=== PATIENT | female | born 1995 | race Two or more races ===

== ENCOUNTER 2022-05-13 18:12 | Emergency (ER) | payer MEDICARE, MEDICAID ==
[~2022-05-13] VITALS: Ht 157.5 cm; Wt 58.0 kg
[2022-05-13] MEDS ORDERED: CEPH-510 PO (22:11)
[2022-05-13] MEDS ORDERED: ONDANSETRON ODT 4 MG TAB PO ONE (22:30)
[2022-05-14 00:01] VITALS: BP 110/74
== END 2022-05-14 04:35 | disposition home or self-care (01) ==
LOC: ER 18:15
DX: S01.01XA Laceration without foreign body of scalp, initial encounter (principal); X58.XXXA Exposure to other specified factors, initial encounter; Y93.89 Activity, other specified; Y92.89 Other specified places as the place of occurrence of the external cause; Y99.8 Other external cause status; F32.9 Major depressive disorder, single episode, unspecified; Z98.890 Other specified postprocedural states
CPT/HCPCS: 12002; 70450; 99283; Q0162

== ENCOUNTER 2024-05-07 17:51 | Emergency (ER) | payer OTHER, MEDICAID ==
[~2024-05-07] VITALS: Ht 162.6 cm; Wt 59.8 kg
[~2024-05-07 17:51] MED LIST: CEPH-510 PO
--- NOTE | 2024-05-07 18:42 | DVH ---
CLINICAL INDICATION: injury/swelling TECHNIQUE: 3 radiographic views of the right wrist were obtained. Comparison: None FINDINGS/IMPRESSION: There is mildly displaced fracture of the ulnar styloid of unknown chronicity. Recommend correlation with point tenderness. No dislocation. The visualized joint space is well maintained. The alignment is anatomical. There is no radiopaque foreign body. There is soft tissue edema of the medial distal forearm and hand.
[2024-05-07 18:43] VITALS: BP 112/76; PULSE 72; RESP 18; TEMP 97.7; O2SAT 98
--- NOTE | 2024-05-07 18:48 | ED.PDOC ---
Back pain HPI HPI Comments BIB STAFF FROM [facility]. PT STATES SHE WAS UPSET AND BANGED RIGH ARM ON COUNTER. RIGHT WRIST EDEMATOUS AND BRUISED. DENEIS SI/HI/AH/VH AT THIS TIME. 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 PROSPECTING SURVEYOR History Family History Family History: Unknown Social History Smoker: Non-Smoker Alcohol: Denies ETOH Use Drugs: Denies Drug Use Lives In: Home Constitutional: denies: chills, diaphoresis, fatigue, fever, malaise, sweats, weakness, others EENTM: denies: blurred vision, double vision, ear bleeding, ear discharge, ear drainage, ear pain, ear ringing, eye pain, eye redness, hearing loss, mouth pain, mouth swelling, nasal discharge, nose bleeding, nose congestion, nose pain, photophobia, tearing, throat pain, throat swelling, voice changes, others Respiratory: denies: cough, hemoptysis, orthopnea, SOB at rest, shortness of breath, SOB with excertion, stridor, wheezing, others Cardiovascular: denies: chest pain, dizzy spells, diaphoresis, Dyspnea on exertion, edema, irregular heart beat, left arm pain, lightheadedness, palpitations, PND, syncope, others Gastrointestinal: denies: abdomen distended, abdominal pain, blood streaked bowels, constipated, diarrhea, dysphagia, difficulty swallowing, hematemesis, melena, nausea, poor appetite, poor fluid intake, rectal bleeding, rectal pain, vomiting, others Genitourinary: denies: abnormal vagina bleeding, burning, dyspareunia, dysuria, flank pain, frequency, hematuria, incontinence, pain, , vagina discharge, urgency, others Neurological: denies: dizziness, fainting, headache, left sided numbness, left sided weakness, numbness, paresthesia, pre-existing deficit, right sided numbness, right sided weakness, seizure, speech problems, tingling, tremors, weakness, others Musculoskeletal: reports: others (RIGHT WRIST PAIN AND INJURY ); denies: back pain, gout, joint pain, joint swelling, muscle pain, muscle stiffness, neck pain Integumetry: denies: bruises, change in color, change in hair/nails, dryness, laceration, lesions, lumps, rash, wounds, others Allergic/Immunocompromised: denies: Difficulty Healing, Frequent Infections, Hives, Itching, others Hematologic/Lymphatic: denies: anemia, blood clots, easy bleeding, easy bruising, swollen glands, others Endocrine: denies: excessive hunger, excessive sweating, excessive thirst, excessive urination, flushing, intolerance to cold, intolerance to heat, unexplained weight gain, unexplained weight loss, others Psychiatric: denies: anxiety, bipolar disorder, depression, hopeless, panic disorder, schizophrenia, sleepless, suicidal, others Physical Exam General Appearance: No Apparent Distress, Normal HEENT: Pharynx Normal Neck: Full Range of Motion, Non-Tender Respiratory: Lungs Clear, No Respiratory Distress, Normal Breath Sounds Cardiovascular: No Murmur, Normal Peripheral Pulses, Regular Rate/Rhythm Breast Exam: Deferred Gastrointestinal: Non Tender, Soft Genitalia: Deferred Pelvic: Deferred Rectal: Deferred Extremities: Normal capillary refill, Normal inspection, Normal range of motion, Non-tender, No pedal edema Musculoskeletal : Location: Right Extremity Location: Wrist (MODERATE TENDERNESS PALPATED OVER RIGHT LATERAL ANTERIOR WRIST WITH MODERATE EDEMA. 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 Was a procedure done?: No Back Pain Differential Dx Differential Diagnosis: Fracture, Musculoskeletal Pain X-Ray, Labs, Meds, VS Vital Signs Date Time Temp Pulse Resp B/P (MAP) Pulse Ox O2 Delivery O2 Flow Rate FiO2 05/07/24 18:43 97.7 72 18 112/76 (88) 98 97.7 05/07/24 18:43 72 18 98 Room Air 05/07/24 18:09 97.7 72 18 112/76 88 98 X-Ray, Labs, Meds, VS Comment FINDINGS/IMPRESSION: There is mildly displaced fracture of the ulnar styloid of unknown chronicity. Recommend correlation with point tenderness. No dislocation. The visualized joint space is well maintained. The alignment is anatomical. There is no radiopaque foreign body. There is soft tissue edema of the medial distal forearm and hand. Ice pack Applied patient placed in splint. Advised to follow up with PCP in 2-3 days for referral to ortho do not remove splint into re-evaluated advised on rice. [id number] Tylenol or Motrin as needed for pain. ER return precautions given patient indicates understanding and agrees with discharge plan of care. Time of 1ST Reevaluation: 19:33 Reevaluation 1ST: Improved Patient Education/Counseling: Diagnosis, Treatment, Prognosis, Need For Follow Up Family Education/Counseling: Diagnosis, Treatment, Prognosis, Need For Follow Up Departure 1 Departure Time of Disposition: 19:33 Impression: Primary Impression: Fracture of right ulnar styloid Qualified Codes: S52.614A - Nondisplaced fracture of right ulna styloid process, initial encounter for closed fracture Disposition: 01 HOME / SELF CARE / HOMELESS Condition: Stable Discharged With: Brim Plater Critical Care Note Critical Care Time?: No Stability Stability form required: JODI Royal May 07, 2024 18:47
[2024-05-08] MEDS ORDERED: KETO10TA PO (19:57)
== END 2024-05-07 20:14 | disposition home or self-care (01) ==
LOC: ER 17:55
DX: S52.611A Displaced fracture of right ulna styloid process, initial encounter for closed fracture (principal); W22.09XA Striking against other stationary object, initial encounter; Y93.89 Activity, other specified; Y92.89 Other specified places as the place of occurrence of the external cause; Y99.8 Other external cause status; F32.A Depression, unspecified; R56.9 Unspecified convulsions; Z98.890 Other specified postprocedural states
CPT/HCPCS: 29125; 73110

== ENCOUNTER 2024-05-08 18:24 | Emergency (ER) | payer OTHER, MEDICAID ==
[~2024-05-08] VITALS: Ht 154.9 cm; Wt 61.7 kg
--- NOTE | 2024-05-08 18:52 | ED.PDOC ---
Back pain HPI HPI Comments THIS IS A 29-YEAR-OLD MALE FEMALE PRESENTS TO THE ED CHIEF COMPLAINT STATUS POST INJURY TO HER ULNAR. STATES SEEN HERE YESTERDAY AND HAS ULNAR FX RT STATES SPLINT IS "TOO HEVY AND IM HAVING ALOT OF PAIN" CAP REFILL < 3 SEC +PULSES. HE HAS NUMBNESS, WEAKNESS OR NEW INJURY. Chief Complaint: Upper Extremity Time Seen by MD: 18:29 Primary Care Provider: ? 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 History Family History Family History: Unknown Social History Smoker: Non-Smoker Alcohol: Denies ETOH Use Drugs: Denies Drug Use Lives In: Home Constitutional: denies: chills, diaphoresis, fatigue, fever, malaise, sweats, weakness, others EENTM: denies: blurred vision, double vision, ear bleeding, ear discharge, ear drainage, ear pain, ear ringing, eye pain, eye redness, hearing loss, mouth pain, mouth swelling, nasal discharge, nose bleeding, nose congestion, nose pain, photophobia, tearing, throat pain, throat swelling, voice changes, others Respiratory: denies: cough, hemoptysis, orthopnea, SOB at rest, shortness of breath, SOB with excertion, stridor, wheezing, others Cardiovascular: denies: chest pain, dizzy spells, diaphoresis, Dyspnea on exertion, edema, irregular heart beat, left arm pain, lightheadedness, palpitations, PND, syncope, others Gastrointestinal: denies: abdomen distended, abdominal pain, blood streaked bowels, constipated, diarrhea, dysphagia, difficulty swallowing, hematemesis, melena, nausea, poor appetite, poor fluid intake, rectal bleeding, rectal pain, vomiting, others Genitourinary: denies: abnormal vagina bleeding, burning, dyspareunia, dysuria, flank pain, frequency, hematuria, incontinence, pain, , vagina discharge, urgency, others Neurological: denies: dizziness, fainting, headache, left sided numbness, left sided weakness, numbness, paresthesia, pre-existing deficit, right sided numbness, right sided weakness, seizure, speech problems, tingling, tremors, weakness, others Musculoskeletal: denies: back pain, gout, joint pain, joint swelling, muscle pain, muscle stiffness, neck pain, others Integumetry: reports: bruises; denies: change in color, change in hair/nails, dryness, laceration, lesions, lumps, rash, wounds, others Allergic/Immunocompromised: denies: Difficulty Healing, Frequent Infections, Hives, Itching, others Hematologic/Lymphatic: denies: anemia, blood clots, easy bleeding, easy bruising, swollen glands, others Endocrine: denies: excessive hunger, excessive sweating, excessive thirst, excessive urination, flushing, intolerance to cold, intolerance to heat, unexplained weight gain, unexplained weight loss, others Psychiatric: denies: anxiety, bipolar disorder, depression, hopeless, panic disorder, schizophrenia, sleepless, suicidal, others Physical Exam General Appearance: No Apparent Distress, Normal HEENT: Pharynx Normal Neck: Full Range of Motion, Non-Tender Respiratory: Lungs Clear, No Respiratory Distress, Normal Breath Sounds Cardiovascular: No Murmur, Normal Peripheral Pulses, Regular Rate/Rhythm Breast Exam: Deferred Gastrointestinal: Non Tender, Soft Genitalia: Deferred Pelvic: Deferred Rectal: Deferred Extremities: Normal capillary refill, Normal inspection, Normal range of motion, Non-tender, No pedal edema Musculoskeletal : Location: Right Extremity Location: Arm (SPLINT IN PLACE POSITIVE RADIAL PULSE STRENGTH SENSORY AND MOTION INTACT NO DISCOLORATION ) Apperance: Normal Neurologic: Alert, grab hooker II-XII nml as Tested, No Motor Deficits, Normal Affect, Normal Mood, No Sensory Deficits Cerebellar Function: Normal Reflexes: Normal Skin: Dry, Normal Color, Warm Lymphatic: No Adenopathy Was a procedure done? Was a procedure done?: No Back Pain Differential Dx Differential Diagnosis: Fracture, Strain X-Ray, Labs, Meds, VS Vital Signs Date Time Temp Pulse Resp B/P (MAP) Pulse Ox O2 Delivery O2 Flow Rate FiO2 05/08/24 18:57 65 18 97 Room Air 05/08/24 18:57 97.7 65 18 128/80 (96) 97 97.7 05/08/24 18:40 97.7 65 18 128/80 (96) 97 Current Medications Medications (Trade) Dose Ordered Sig/Dixie Route Start Time Stop Time Status Last Admin Ketorolac Tromethamine (Toradol Injection) 60 mg ONCE ONCE IM 05/08/24 19:30 05/08/24 19:35 DC 05/08/24 19:43 X-Ray, Labs, Meds, VS Comment SPLINT REPLACED PATIENT TOLERATED WELL 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 SCRIPT TORADOL 10 MG X 5 DAYS. TORADOL 60 MG IM IN CLINIC REPORTS IMP ROVEMENT IN PAIN AND FUNCTION REQUESTING DISCHARGE AT THIS TIME. ADVISED TO FOLLOW UP WITH ORTHO DISCUSSED FOLLOW UP WITH YOUR PCP IF YOU NEED A REFERRAL 1ST. ADVISED ON RICE ER RETURN PRECAUTIONS GIVEN PATIENT INDICATES UNDERSTANDING AGREES WITH DISCHARGE PLAN OF CARE. Time of 1ST Reevaluation: 19:55 Reevaluation 1ST: Improved Patient Education/Counseling: Diagnosis, Treatment, Prognosis, Need For Follow Up Family Education/Counseling: No Family Present Departure 1 Departure Time of Disposition: 19:55 Impression: Primary Impression: Fracture of right ulnar styloid Qualified Codes: S52.611D - Displaced fracture of right ulna styloid process, subsequent encounter for closed fracture with routine healing Disposition: 01 HOME / SELF CARE / HOMELESS Condition: Stable e-Prescriptions Ketorolac Tromethamine (Ketorolac Tromethamine) 10 Mg Tab 1 TAB PO TID PRN for 5 Days, #15 TAB Prov: JODI MACK 05/08/24 Discharged With: Self Critical Care Note Critical Care Time?: No Stability Stability form required: No JODI MACK May 08, 2024 18:52
[2024-05-08 18:57] VITALS: BP 128/80; PULSE 65; RESP 18; TEMP 97.7; O2SAT 97
[2024-05-08] MEDS: KETOROLAC TROMETH 60MG/2ML VIAL IM ONE (19:43)
[2024-05-08] MEDS ORDERED: KETO10TA PO (19:57)
== END 2024-05-08 20:12 | disposition home or self-care (01) ==
LOC: ER 18:30
DX: S52.614A Nondisplaced fracture of right ulna styloid process, initial encounter for closed fracture (principal); Z98.890 Other specified postprocedural states; X58.XXXA Exposure to other specified factors, initial encounter; Y93.89 Activity, other specified; Y92.89 Other specified places as the place of occurrence of the external cause; Y99.8 Other external cause status
CPT/HCPCS: 29125; 96372; 99283; J1885

== ENCOUNTER 2024-09-10 18:08 | Emergency (ER) | payer OTHER, MEDICAID ==
[~2024-09-10] VITALS: Ht 154.9 cm; Wt 59.9 kg
--- NOTE | 2024-09-10 19:01 | ED.PDOC ---
Psychiatric HPI Comments 29-year-old female came to ER due to suicidal ideations. Patient resides at the [facility] facility, she has a history of anxiety, bipolar disorder, suicidal ideations, and episodes of self-harm. Patient was having a walk with her caretakers, when she saw a piece of glass the ground, she picked it up, and started cutting her left forearm with it. Noted abrasions/ superficial lacerations over her left forearm. She denies any auditory or visual hallucinations. Denies any homicidal ideations Chief Complaint: Suicidal Time Seen by MD: 19:00 Primary Care Provider: UNKNOWN Reviewed Notes: Nurses Notes Information Source: Patient, Mental Health Staff Mode of Arrival: Ambulatory Severity: Unable to Care for Self, Unable to Control Self Severity of Pain: Moderate Severity of Mental Status: Moderate Severity of Symptoms: Moderate Timing: Minutes Duration: Since onset Presents with: Depression, Anxiety, Unclear Thinking, Bizarre Behavior, Suicidal Ideation Attempt: Laceration Circumstance: Medical Clearance, Causing a Disturbance Current substance abuse: None Stressors: Relationships History of: Depression, Anxiety, Bipolar, Suicidal Attempt Associated signs and symptoms: Depression, Anxiety, Injury Past Medical History PAST MEDICAL HISTORY: Depression Past Medical History (Other): Bipolar disorder, suicide ideations 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 Family History Family History: Reviewed,noncontributory to illness Social History Smoker: Non-Smoker Alcohol: Denies ETOH Use Drugs: Denies Drug Use Lives In: Assisted Care Constitutional: denies: chills, diaphoresis, fatigue, fever, malaise, sweats, weakness, others EENTM: denies: blurred vision, double vision, ear bleeding, ear discharge, ear drainage, ear pain, ear ringing, eye pain, eye redness, hearing loss, mouth pain, mouth swelling, nasal discharge, nose bleeding, nose congestion, nose pain, photophobia, tearing, throat pain, throat swelling, voice changes, others Respiratory: denies: cough, hemoptysis, orthopnea, SOB at rest, shortness of breath, SOB with excertion, stridor, wheezing, others Cardiovascular: denies: chest pain, dizzy spells, diaphoresis, Dyspnea on exertion, edema, irregular heart beat, left arm pain, lightheadedness, pa lpitations, PND, syncope, others Gastrointestinal: denies: abdomen distended, abdominal pain, blood streaked bowels, constipated, diarrhea, dysphagia, difficulty swallowing, hematemesis, melena, nausea, poor appetite, poor fluid intake, rectal bleeding, rectal pain, vomiting, others Genitourinary: denies: abnormal vagina bleeding, burning, dyspareunia, dysuria, flank pain, frequency, hematuria, incontinence, pain, , vagina discharge, urgency, others Neurological: denies: dizziness, fainting, headache, left sided numbness, left sided weakness, numbness, paresthesia, pre-existing deficit, right sided numbness, right sided weakness, seizure, speech problems, tingling, tremors, weakness, others Musculoskeletal: denies: back pain, gout, joint pain, joint swelling, muscle pain, muscle stiffness, neck pain, others Integumetry: reports: laceration (Superficial laceration left forearm); denies: bruises, change in color, change in hair/nails, dryness, lesions, lumps, rash, wounds, others Allergic/Immunocompromised: denies: Difficulty Healing, Frequent Infections, Hives, Itching, others Hematologic/Lymphatic: denies: anemia, blood clots, easy bleeding, easy bruising, swollen glands, others Endocrine: denies: excessive hunger, excessive sweating, excessive thirst, excessive urination, flushing, intolerance to cold, intolerance to heat, unexplained weight gain, unexplained weight loss, others Psychiatric: reports: anxiety, bipolar disorder, suicidal; denies: depression, hopeless, panic disorder, schizophrenia, sleepless, others Physical Exam General Appearance: No Apparent Distress, Normal HEENT: Normal ENT Inspection, Pharynx Normal, TMs Normal Neck: Full Range of Motion, Non-Tender, Normal, Normal Inspection Respiratory: Chest Non-Tender, Lungs Clear, No Accessory Muscle Use, No Respiratory Distress, Normal Breath Sounds Cardiovascular: No Edema, No JVD, No Murmur, No Gallop, Normal Peripheral Pulses, Regular Rate/Rhythm Breast Exam: Deferred Gastrointestinal: No Organomegaly, Non Tender, No Pulsatile Mass, Normal Bowel Sounds, Soft Genitalia: Deferred Pelvic: Deferred Rectal: Deferred Extremities: No calf tenderness, Normal capillary refill, Normal inspection, Normal range of motion, Non-tender, No pedal edema Musculoskeletal : Apperance: Normal Neurologic: Alert, midwife practitioner II-XII nml as Tested, No Motor Deficits, Normal Affect, Normal Mood, No Sensory Deficits Cerebellar Function: Normal Reflexes: Normal Skin: Dry, Lacerations (Superficial lacerations left forearm), Normal Color, Warm Lymphatic: No Adenopathy Was a procedure done? Was a procedure done?: No Psych Differential Dx Psych. Differential Dx: Anxiety, Bipolar Disorder, Depression, Hopeless, Schizoprenia, Suicidal X-Ray, Labs, Meds, VS Vital Signs Date Time Temp Pulse Resp B/P (MAP) Pulse Ox O2 Delivery O2 Flow Rate FiO2 09/10/24 21:30 Room Air* 0 21 09/10/24 21:30 97.7 92 16 110/63 (79) 96 97.7 09/10/24 18:47 97.0 92 16 110/63 (79) 96 97.0 Lab Test 09/10/24 19:00 09/10/24 18:59 Range/Units Urine Test Negative Negative Urine Opiates Screen Neg NEGATIVE Urine Fentanyl Screen Neg NEGATIVE Urine Barbiturates Screen Neg NEGATIVE Urine Phencyclidine Screen Neg NEGATIVE Urine Amphetamines Screen Neg NEGATIVE Urine Benzodiazepines Screen Pos NEGATIVE Urine Cocaine Screen Neg NEGATIVE Urine Cannabinoids Screen Neg NEGATIVE White Blood Count 10.8 4.4-10.8 10^3/uL Red Blood Count 4.88 4.0-5.20 10^6/uL Hemoglobin 12.5 12.2-16.2 g/dL Hematocrit 38.0 36.0-46.0 % Mean Corpuscular Volume 77.9 L 80.0-100.0 fL Mean Corpuscular Hemoglobin 25.5 L 28.0-32.0 pg Mean Corpuscular Hemoglobin Concent 32.8 32.0-36.0 g/dL Red Cell Distribution Width 17.1 H 11.8-14.3 % Platelet Count 197 140-450 10^3/uL Mean Platelet Volume 10.3 6.9-10.8 fL Neutrophils (%) (Auto) 80.4 H 37.0-80.0 % Lymphocytes (%) (Auto) 11.9 10.0-50.0 % Monocytes (%) (Auto) 5.0 0.0-12.0 % Eosinophils (%) (Auto) 2.2 0.0-7.0 % Basophils (%) (Auto) 0.5 0.0-2.0 % Neutrophils # (Auto) 8.7 H 1.6-8.6 10 ^3/uL Lymphocytes # (Auto) 1.3 0.4-5.4 10 ^3/uL Monocytes # (Auto) 0.5 0-1.3 10 ^3/uL Eosinophils # (Auto) 0.2 0-0.8 10 ^3/uL Basophils # (Auto) 0 0-0.2 10 ^3/uL Nucleated Red Blood Cells 0.0 % Sodium Level 141 136-145 mmol/L Potassium Level 4.1 3.5-5.1 mmol/L Chloride Level 109 H 98-107 mmol/L Carbon Dioxide Level 25 20-31 mmol/L Anion Gap 7 5-15 Blood Urea Nitrogen 10 9-23 mg/dL Creatinine 0.88 0.550-1.02 mg/dL Glomerular Filtration Rate Calc 91 >90 mL/min BUN/Creatinine Ratio 11.4 10.0-20.0 Serum Glucose 90 74-106 mg/dL Calcium Level 10.4 8.7-10.4 mg/dL Total Bilirubin 0.4 0.2-1.0 mg/dL Aspartate Amino Transferase (AST) 15 13-40 U/L Alanine Aminotransferase (ALT) 12 7-40 U/L Alkaline Phosphatase 69 46-116 U/L Total Protein 7.9 5.7-8.2 g/dL Albumin 5.1 H 3.2-4.8 g/dL Salicylates Level < 3.0 -30 mg/dL Acetaminophen Level < 2.0 L 10.0-20.0 UG/ML Plasma/Serum Blood Alcohol < 3.0 <10 mg/dL Time of 1ST Reevaluation: 18:55 Reevaluation 1ST: Unchanged Consultation: Psychiatry Patient Education/Counseling: Diagnosis, Treatment Family Education/Counseling: Diagnosis, Treatment Departure 1 Departure Time of Disposition: 21:00 Impression: Primary Impression: Abrasion of left forearm, initial encounter Additional Impression: Abrasion, hand Disposition: HOME / SELF CARE / HOMELESS Condition: Stable Discharged With: Self Comments Lab results reviewed. Patient is medically cleared at this time. The plan will be to contact Mental Health to evaluate the patient for self harm behavior Critical Care Note Critical Care Time?: No Stability Stability form required: No Heart Score Heart Score: Heart Score Response (Comments) Value History N/A 0 EKG N/A 0 Age N/A 0 Risk Factors N/A 0 Troponin N/A 0 Total 0 I personally scribed for JOSE HE MD ([email or web address]) on 09/10/24 at 19:01. Electronically submitted by Twan Carrasquillo ([facility]). JOSE HE MD Sep 10, 2024 19:01
[2024-09-10 19:13] LABS: Basophils # (auto) 0 10 ^3/uL (0-0.2); Eosinophils # (auto) 0.2 10 ^3/uL (0-0.8); Hemoglobin 12.5 g/dL (12.2-16.2); Monocytes # (auto) 0.5 10 ^3/uL (0-1.3); Neutrophils # (auto) 8.7 10 ^3/uL (1.6-8.6); White Blood Cell 10.8 10^3/uL (4.4-10.8)
[2024-09-10 19:15] LABS: Basophils % (auto) 0.5 % (0.0-2.0); Eosinophils % (auto) 2.2 % (0.0-7.0); Lymphocytes # (auto) 1.3 10 ^3/uL (0.4-5.4); Lymphocytes % (auto) 11.9 % (10.0-50.0); Mean Corpuscular Hemoglobin 25.5 pg (28.0-32.0); Mean Corpuscular Hgb Conc. 32.8 g/dL (32.0-36.0); Mean Corpuscular Volume 77.9 fL (80.0-100.0); Neutrophils % (auto) 80.4 % (37.0-80.0); Platelet Count (auto) 197 10^3/uL (140-450); Red Blood Cells 4.88 10^6/uL (4.0-5.20); Red Cell Distribution Width 17.1 % (11.8-14.3)
[2024-09-10 19:30] LABS: Amphetamine Screen, Urine Neg (NEGATIVE); Benzodiazephine Screen, Urine Pos (NEGATIVE)
[2024-09-10 19:32] LABS: Alanine Aminotransferase 12 U/L (7-40); Alkaline Phosphatase 69 U/L (46-116); Anion Gap 7 (5-15); Aspartate Aminotransferase 15 U/L (13-40); BUN/Creatinine Ratio 11.4 (10.0-20.0); Blood Urea Nitrogen 10 mg/dL (9-23); Calcium 10.4 mg/dL (8.7-10.4); Carbon Dioxide 25 mmol/L (20-31); Glucose 90 mg/dL (74-106); Potassium 4.1 mmol/L (3.5-5.1); Sodium 141 mmol/L (136-145); Total Protein 7.9 g/dL (5.7-8.2)
[2024-09-10 19:33] LABS: Bilirubin, Total 0.4 mg/dL (0.2-1.0)
[2024-09-10 19:38] LABS: Barbiturate Scree,Urine Neg (NEGATIVE); Cannabinoid Screen, Urine Neg (NEGATIVE); Cocaine Screen, Urine Neg (NEGATIVE); Opiate Scree,Urine Neg (NEGATIVE); Phencyclidine Screen, Urine Neg (NEGATIVE)
[2024-09-10 19:38] LABS: Acetaminophen < 2.0 UG/ML (10.0-20.0); Albumin 5.1 g/dL (3.2-4.8); Blood Alcohol < 3.0 mg/dL (<10); Chloride 109 mmol/L (98-107); Salicylate < 3.0 mg/dL (-30)
[2024-09-10 21:30] VITALS: BP 110/63; PULSE 92; RESP 16; TEMP 97.7; O2SAT 96
--- NOTE | 2024-09-11 01:09 | DVHINCON2 ---
Date of Service if different f: Sep 11, 2024 Time of Service: 00:25 Consult Consult Note PSYCHIATRY ED NEW CONSULT HPI: 29 yo F pt with PPH of depression, social phobia, and anxiety presents to ED BIB [facility] supervisiors for safety, psychiatric stabilization, and possible med initiation/optimization in setting of SIB. Psychiatry consulted for safety evaluation and recommendations in context of current presentation Per pt, reports while walking outside with caretakers, noticed a piece of glass on ground, subsequently picked it up and started making multiple superficial lacerations on L forearm Pt adamantly denies cutting as suicide attempt/gesture or intention to self harm. Pt admits cutting, although intentional, was due to difficulty controlling emotions and unhealthy coping mechanism related to acute untriggered social anxiety/panic symptoms Currently denies depressed mood, hopelessness, helplessness, isolation, negative thoughts, or anhedonia. Denies anxiety/panic/OCD/PTSD symptoms. Also denies AVH/paranoia/catatonic/perceptual disturbances/personality changes. Sleep/appetite/energy/conc relatively WNL. Adamantly denies SI/HI. No overt manic, psychotic, MDD, cognitive, dissociative, panic, OCD, PTSD, or somatic symptoms noted. Overall appears future oriented/goal directed. Denies acute psychosocial stressors Pt currently does have active outpt MH services established at this time both psychiatry and therapy services with upcoming appt later this month. Currently rx'd sertraline, buspar, PRN Hydroxyzine, Propranolol, denies any hx of med noncompliance Denies ETOH, THC or IDU Single, no children, unemployed/ssi, resides at [facility], limited support system noted Unknown trauma hx. Denies FH of psych hospitalizations, suicide attempts, or completed suicides No acute medical/chronic pain issues, hx of seizures/TBI, or recent head injuries, NKDA Does have hx of SI/SIB/SA/PSG resulting in prior psych hospitalizations, most recent 02/2024. Denies history of violence, unprovoked aggression, or assaultive behaviors. Denies recent hx of impulsivity, attention seeking behaviors, anger outbursts, emotional dysregulation, mood reactivity, or engaging in risky behaviors. Denies any legal problems Currently denies SI/HI/AVH. Does not have access to firearms. Identifies self as PPF. No acute safety concerns noted during encounter MSE: General Appearance/Behavior: Alert and awake; appears stated age, overweight, fair grooming and hygiene; calm and cooperative, fair eye contact, no PMA/PMR Speech: coherent, rrr Thought Process: linear, logical, appears goal-directed Thought Content: Abnormal Thoughts and Perceptions: denies dissociative symptoms Homicidality / Violent Thoughts: adamantly denies HI Suicidality: adamantly denies SI Hallucinations: denies AVTH Delusions: denies paranoia, persecutory, or grandiose delusions Obsessions /compulsions: None Judgment and Insight: improved/fair Mood & Affect: "pretty good" with mood-congruent, appropriate Orientation: oriented to person, place, time Attention/Concentration: appears intact Cognition: grossly intact Assessment: 29 yo F pt with PPH of depression, social phobia, and anxiety presents to ED BIB [facility] supervisors for safety, psychiatric stabilization, and possible med initiation/optimization in setting of SIB. Currently denies SI/HI/AVH. Linear and appears future oriented/goal directed in thought with fair J/I Pts presenting MH symptoms appear more secondary to difficulty controlling emotions and ineffective coping mechanisms in context of acute social anxiety while walking outside Collateral reports from [facility] staff (at bedside) also support that pt has not made any recent/ongoing suicidal statements and did not express any safety concerns Presently, pt does not show any signs of immediate danger to self/others or GD that would necessitate 5150 or involuntary inpatient psych admission. No acute safety concerns noted. Acute suicide risk appears nonexistent to relatively low Pt currently does have psychiatrist/therapist out in community and plans to follow up over next several weeks for ongoing med management/psychotx No indication to change current psychotropic med regimen at this time Primary Diagnosis: Anxiety disorder unspecified. NSSI Plan: Does not warrant involuntary inpatient psychiatric hospitalization or 5150 hold at this time No acute safety concerns Pt can be safely discharged back to current residence Resume current outpatient psychotropics No med changes or additional meds needed at this time Supportive tx provided, discussed safety plan with pt Encouraged mindfulness techniques (reading, walking, meditation, journaling, exercise, deep breathing) during times of stress Pt planning on pursuing ongoing therapy/med management with outpatient MH providers over next several weeks Instructed pt to call/text [phone] or return to ED if MH symptoms worsen or new onset SI/HI upon discharge [facility] staff (at bedside) agrees to watch patient over next couple days, safeguard primary residence, and to arrange any appropriate f/u appointments Pt verbalized understanding and is receptive to above tx plan This case was discussed with ED nurse/provider and all parties in agreement with above tx plan Silvestre Davey MD Plan discussed with: Patient SILVESTRE DAVEY MD Sep 11, 2024 01:09
== END 2024-09-11 03:42 | disposition home or self-care (01) ==
LOC: ER 18:08
DX: S51.812A Laceration without foreign body of left forearm, initial encounter (principal); R45.851 Suicidal ideations; F31.9 Bipolar disorder, unspecified; Z98.890 Other specified postprocedural states; Z79.899 Other long term (current) drug therapy; X78.0XXA Intentional self-harm by sharp glass, initial encounter; Y93.01 Activity, walking, marching and hiking; Y92.89 Other specified places as the place of occurrence of the external cause; Y99.8 Other external cause status
CPT/HCPCS: 36415; 80053; 80307; 80320; 80329; 81025; 85025

== ENCOUNTER 2024-10-18 21:40 | Emergency (ER) | payer OTHER, MEDICAID ==
[~2024-10-18] VITALS: Ht 154.9 cm; Wt 59.1 kg
--- NOTE | 2024-10-18 22:13 | ED.PDOC ---
History of Present Illness HPI Comments 29-year-old female is brought in by caretakers for chief complaint of right hand and wrist pain. Patient has a history of mental health disorders, which include bipolar disorder, depression, and suicidal ideations in addition to being a resident of a long-term. 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 No further acute associated symptoms or injuries reported. Chief Complaint: Mental Health Time Seen by MD: 21:40 Primary Care Provider: UNKNOWN Reviewed Notes: Nurses Notes, Medications, Allergies Allergies: Coded Allergies: NO KNOWN ALLERGIES (Unverified , 05/13/22) Home Meds Active Scripts Cephalexin ( Keflex 500) 500 Mg Cap, 1 CAP PO BID for 7 Days, #14 CAP 0 Refills Prov:ASMITA AGRAWAL 05/13/22 Information Source: Patient, Legal Guardian Mode of Arrival: Ambulatory Severity: Moderate Timing: Hours Duration: Since onset Prehospital treatment: None Review of Systems: REVIEW OF SYSTEMS: General: No fever, no chills, or fatigue HEENT: No sore throat, no earache, no congestion, no neck pain. Cardiac: No chest pain. No palpitations. Lungs: No shortness of breath, no cough. GI: No nausea, no vomiting, no diarrhea, no constipation, no abdominal pain : No dysuria, frequency, or urgency. No hematuria. Musculoskeletal: Right hand and wrist swelling, no joint swelling, no extremity edema. Patient denying pain at this time Skin: No rash, no itching. Neuro: No headache, no dizziness, no weakness Vital Signs Vital Signs Date Time Temp Pulse Resp B/P (MAP) Pulse Ox O2 Delivery O2 Flow Rate FiO2 10/19/24 00:00 Room Air* 0 21 10/19/24 00:00 98.0 71 16 104/66 (79) 100 98.0 Physical Exam PHYSICAL EXAM: General: Awake, alert and oriented. No acute distress. Skin: Skin in warm, dry and intact without rashes or lesions. HEENT: The head is normocephalic and atraumatic. Conjunctivae are clear without exudates or hemorrhage. Sclera is non-icteric. Neck: Normal range of motion. No JVD. Cardiac: Regular rate Respiratory: No signs of respiratory distress. No Stridor. Extremities: Hematoma to right ulnar wrist and hand , 5th metatarsal area. Otherwise, remaining upper are atraumatic in appearance without deformity or edema. Neurological: The patient is awake, alert and oriented to person, place, and time with normal speech. Speech is clear. There is no facial asymmetry. Psychiatric: Appropriate mood and affect. Good judgement and insight. 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 Was a procedure done?: No Differential Dx Considerations may include: Differential diagnoses considered include but are not limited to closed head injury, skull fracture, TBI, long bone fracture, rib fracture, pneumothorax, spinal fracture, spinal injury, cardiac contusion, organ laceration, pelvic fracture, laceration, soft tissue injury, vascular injury, other X-Ray, Labs, Meds, VS Vital Signs Date Time Temp Pulse Resp B/P (MAP) Pulse Ox O2 Delivery O2 Flow Rate FiO2 10/19/24 00:00 Room Air* 0 21 10/19/24 00:00 98.0 71 16 104/66 (79) 100 98.0 10/18/24 21:50 98.5 85 18 103/51 (68) 95 98.5 Lab Test 10/18/24 22:00 Range/Units Urine Color Yellow Yellow Urine Clarity Clear Clear Urine pH 6.5 5.0-9.0 Urine Specific [place] 1.025 1.001-1.035 Urine Protein Trace H Negative Urine Ketones Negative Negative Urine Blood Negative Negative /uL Urine Nitrite Negative Negative Urine Bilirubin Negative Negative Urine Urobilinogen 3 H Negative mg/dL Urine Leukocyte Esterase Negative Negative /uL Urine RBC 2 0 - 4 /hpf Urine Microscopic WBC < 1 0-5 /HPF Urine Squamous Epithelial Cells Few <5 /hpf Urine Bacteria None seen None Seen /hpf Urine Mucus Few None Seen Urine Glucose Normal Normal mg/dL Urine Test Negative Negative [facility] [id number] [facility] [id number] Ph: [phone] DIAGNOSTIC IMAGING Diagnostic Imaging Report : [id number] Signed PATIENT: FORTINO HILTON ACCT: [id number] UNIT: [id number] : 1995 LOC: ER ROOM / BED: / AGE / SEX: 29 / F ADM STATUS: REG ER SERVICE 46 ORDERING PHYSICIAN: RUBY SHELL MD PROCEDURE(s): RWRI - R WRIST 3+ VIEW XRAY REASON: wrist injury/swelling ORDER NUMBER(s): [id number], ACCESSION NUMBER(s): [id number] CLINICAL INDICATION: wrist injury/swelling TECHNIQUE: XY R WRIST 3+ VIEW XRAY Comparison: XY R WRIST 3+ VIEW XRAY on DOS: 05/07/24 FINDINGS/IMPRESSION: : Subacute appearing moderately displaced ulnar styloid process fracture. No other fractures identified. There is no evidence of dislocation. Soft tissues are unremarkable. ATED BY: KUNAL DELGADO MD DICTATED DATE/TIME: 10/18/242358 SIGNED BY: KUNAL DELGADO MD SIGNED DATE/TIME: 10/18/242358 CC: [place] [id number] Ph: [phone] DIAGNOSTIC IMAGING Diagnostic Imaging Report : [id number] Signed PATIENT: FORTINO HILTON ACCT: [id number] UNIT: [id number] : 1995 LOC: ER ROOM / BED: / AGE / SEX: 29 / F ADM STATUS: REG ER SERVICE 46 ORDERING PHYSICIAN: RUBY SHELL MD PROCEDURE(s): RHAN - R HAND 3 VIEW XRAY REASON: hand injury/swelling ORDER NUMBER(s): [id number], ACCESSION NUMBER(s): [id number] CLINICAL INDICATION: hand injury/swelling TECHNIQUE: XY R HAND 3 VIEW XRAY Comparison: None FINDINGS/IMPRESSION: : Subacute appearing moderately displaced ulnar styloid process fracture. No other fractures are identified. No evidence of dislocation. Soft tissues are unremarkable. ATED BY: KUNAL DELGADO MD DICTATED DATE/TIME: 10/18/242358 SIGNED BY: KUNAL DELGADO MD SIGNED DATE/TIME: 10/18/242358 CC: Time of 1ST Reevaluation: 22:10 Reevaluation 1ST: Unchanged Patient Education/Counseling: Need For Follow Up Family Education/Counseling: Need For Follow Up SEPSIS Sepsis Screen Physician Orders R Wrist 3+ View Xray (10/18/24 21:47) R Hand 3 View Xray (10/18/24 21:47) Soc Telemed Psych Consult (10/19/24 00:25) Vital Signs Date Time Temp Pulse Resp B/P (MAP) Pulse Ox O2 Delivery O2 Flow Rate FiO2 10/19/24 00:00 Room Air* 0 21 10/19/24 00:00 98.0 71 16 104/66 (79) 100 98.0 10/18/24 21:50 98.5 85 18 103/51 (68) 95 98.5 Departure 1 Departure Time of Disposition: 23:58 Impression: Primary Impression: Hematoma Disposition: 01 HOME / SELF CARE / HOMELESS Condition: Stable Additional Instructions: ED DISCHARGE INSTRUCTIONS Instructions: Please read all instructions provided in this packet carefully. Although you have been discharged from the Emergency Department, this does not mean that you have a "clean bill of health". No definitive diagnosis for your symptoms has been made today. It is possible that you are in the process of developing a serious illness. This is why you must return to the ED without fail if any new or worsening symptoms (especially if your symptoms include chest pain, trouble breathing, abdominal pain, fever, headache, confusion, trouble seeing, or trouble walking) It is also very important that you see a primary care provider (PCP) within the next 3-5 days to follow up. If you are unable to get an appointment, return to the ED for re-evaluation. Hematoma: Care Instructions Overview A hematoma is a bad bruise. It happens when an injury causes blood to collect and pool under the skin. The pooling blood gives the skin a spongy, rubbery, lumpy feel. A hematoma usually is not a cause for concern. It is not the same thing as a blood clot in a vein, and it does not cause blood clots. Follow-up care is a trujillo part of your treatment and safety. Be sure to make and go to all appointments, and call your doctor if you are having problems. It's also a good idea to know your test results and keep a list of the medicines you take. How can you care for yourself at home? Rest and protect the bruised area. Put ice or a cold pack on the area for 10 to 20 minutes at a time. Prop up the bruised area on a pillow when you ice it or anytime you sit or lie down during the next 3 days. Try to keep it above the level of your heart. This will help reduce swelling. Wrapping the bruised area with an elastic bandage such as an Jaylon wrap will help decrease swelling. Don't wrap it too tightly, as this can cause more swelling below the affected area. Be safe with medicines. Read and follow all instructions on the label. If the doctor gave you a prescription medicine for pain, take it as prescribed. If you are not taking a prescription pain medicine, ask your doctor if you can take an rcjf-dqs-enhzren medicine. Do not take two or more pain medicines at the same time unless the doctor told you to. Many pain medicines have acetaminophen, which is Tylenol. Too much acetaminophen (Tylenol) can be harmful. When should you call for help? Call your doctor now or seek immediate medical care if: You have signs of skin infection, such as: Increased pain, swelling, warmth, or redness. Red streaks leading from the area. Pus draining from the area. A fever. Watch closely for changes in your health, and be sure to contact your doctor if: The bruise lasts longer than 4 weeks. The bruise gets bigger or becomes more painful. You do not get better as expected. Credits for Hematoma: Care Instructions Current as of: November 05, 2023 Author: [employer] Staff Clinical Review Board All [employer] education is reviewed by a team that includes physicians, nurses, advanced practitioners, registered dieticians, and other healthcare professionals. Comments 29-year-old female who presented with hand injury. No acute fracture, old right ulnar styloid fracture noted Prior to discharge caretakers reported patient making suicidal statements of the residential home Patient was evaluated by Psychiatry and felt stable for discharge home Extensive evaluation was performed in attempt to identify or rule out: (See differential diagnosis section) The following tests were ordered, and results were reviewed by me and discussed with patient: (See diagnostic results section) The following test were independently interpreted by me: N/A I reviewed and agreed with the following test results read by other providers: Right hand and wrist x-ray I reviewed the following notes from the pt's past medical encounters: May 07, 2024, May 08, 2024, and September 10, 2024 encounters for fracture for right ulnar styloid, fracture of right ulnar styloid, and abrasion-hand, respectively Additional information was gathered from interviewing the following independent historians: Caretakers Discussion of management or test interpretation with external physician/other qualified health healthcare business analyst: Dr. Singh Decision regarding hospitalization or escalation of hospital level of care: Risks and benefits of admission for further treatment of patient's condition was considered however due to patient's stable condition patient will be discharged to follow up closely or return to care for worsening of condition or inability to follow up. Critical Care Note Critical Care Time?: No Stability Stability form required: No Heart Score Heart Score: Heart Score Response (Comments) Value History N/A 0 EKG N/A 0 Age N/A 0 Risk Factors N/A 0 Troponin N/A 0 Total 0 I personally scribed for RUBY SHELL MD ([email or web address]) on 10/18/24 at 22:13. Electronically submitted by Paulino He ([email or web address]). I personally scribed for RUBY SHELL MD ([email or web address]) on 10/19/24 at 00:50. Electronically submitted by Paulino He ([email or web address]). RUBY SHELL MD Oct 18, 2024 22:13
[2024-10-18 23:04] LABS: Urine Protein, UAD TRACE (Negative)
[2024-10-19] VITALS: BP 104/66; PULSE 71; RESP 16; TEMP 98; O2SAT 100
--- NOTE | 2024-10-19 00:01 | DVH ---
CLINICAL INDICATION: wrist injury/swelling TECHNIQUE: XY R WRIST 3+ VIEW XRAY Comparison: XY R WRIST 3+ VIEW XRAY on DOS: 05/07/24 FINDINGS/IMPRESSION: : Subacute appearing moderately displaced ulnar styloid process fracture. No other fractures identified . There is no evidence of dislocation. Soft tissues are unremarkable.
--- NOTE | 2024-10-19 00:02 | DVH ---
CLINICAL INDICATION: hand injury/swelling TECHNIQUE: XY R HAND 3 VIEW XRAY Comparison: None FINDINGS/IMPRESSION: : Subacute appearing moderately displaced ulnar styloid process fracture. No other fractures are identi fied. No evidence of dislocation. Soft tissues are unremarkable.
--- NOTE | 2024-10-19 01:50 | DVHINCON2 ---
Date of Service if different f: Oct 19, 2024 Time of Service: 01:32 Consultation ([facility]) Consulting Physician: MAXIMILIANO JACOBS MD Labs Laboratory Tests Test 10/18/24 22:00 Urine Color Yellow (Yellow) Urine Clarity Clear (Clear) Urine pH 6.5 (5.0-9.0) Urine Specific [place] 1.025 (1.001-1.035) Urine Protein Trace (Negative) Urine Ketones Negative (Negative) Urine Blood Negative /uL (Negative) Urine Nitrite Negative (Negative) Urine Bilirubin Negative (Negative) Urine Urobilinogen 3 mg/dL (Negative) Urine Leukocyte Esterase Negative /uL (Negative) Urine RBC 2 /hpf (0 - 4) Urine Microscopic WBC < 1 /HPF (0-5) Urine Squamous Epithelial Cells Few /hpf (<5) Urine Bacteria None seen /hpf (None Seen) Urine Mucus Few (None Seen) Urine Glucose Normal mg/dL (Normal) Urine Test Negative (Negative) Appearance: Stated age Psychomotor activity: WNL, Calm Behavioral: Cooperative Eye contact: Appropriate Speech: WNL Affect: Appropriate, Mood Congruent Mood: Euthymic Thought processes: Linear/Goal-directed Thought content: WNL Suicidal ideations: Absent Homicidal ideations: Absent Orientation: Person, Place, Time, Situation Memory intact: Recent Intellect: Average Abstractability: WNL Concentration: Adequate Attention: Adequate Judgement: WNL Insight: Good Vitals Vital Signs Date Time Temp Pulse Resp B/P (MAP) Pulse Ox O2 Delivery O2 Flow Rate FiO2 10/19/24 00:00 Room Air* 0 21 10/19/24 00:00 98.0 71 16 104/66 (79) 100 98.0 Treatment plan discussed: With staff Medication adjusted: No Labs ordered: No Psychotherapy provided: No Type: Voluntary History of Present Illness Reason for Consult : psychiatric evaluation PER ED PHYSICIAN NOTE: 29-year-old female is brought in by caretakers for chief complaint of right hand and wrist pain. Patient has a history of mental health disorders, which include bipolar disorder, depression, and suicidal ideations in addition to being a resident of a nursing home. 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 No further acute associated symptoms or injuries reported. PSYCHIATRIST HPI: The patient was seen and evaluated at [facility] ED via telepsychiatry platform.29 yr old female reported reported she hit her wrist because she was triggered by a staff. She said she came in because her wrist got swollen because she was hitting her hand on the edge of a dresser. She stated she is now calm and feels safe returning to her nursing home. She stated she sees a psychiatrist monthly, does not drink or use drugs and takes her medications regularly. She denied having suicidal ideation, plan or intent. She denied homicidal ideation, plan or intent. She denied having auditory or visual hallucinations. Past Psychiatric History : Diagnosed with psychosis, bipolar, borderline PD, intellectual disability. Multiple hospitalizations, last in Feb 2024. Multiple suicide attempts since age 18. Sees psychiatrist monthly. Past Medical History: gastritis Current Medications: multiple. NKDA Substance use: Denied use of alcohol and other substance use. Social History : Lives in a nursing home since Mar 2024. Had lived in other group homes prior to this one. Diagnosis: UNSPECIFIED PSYCHOTIC DISORDER; INTELLECTUAL DISABILITY Formulation: This 29 yr old female appears to suffer from psychosis and intellectual disability. She is not suicidal and does not warrant admission to a behavioral health unit. Plan: 1. Safety. The patient is a low risk for self harm and may be managed as an outpatient. 2. Legal-Voluntary. 3. Medication:continue present outpatient regimen. 4. Contact psychiatry if further evaluation or follow up is desired. 5. case discussed with ED physician, Dr Tejada. Assessment/Diagnosis/Plan Reviewed: Labs, Medications, Previous Orders MAXIMILIANO JACOBS MD Oct 19, 2024 01:37
== END 2024-10-19 01:52 | disposition home or self-care (01) ==
LOC: ER 21:40
DX: S60.211A Contusion of right wrist, initial encounter (principal); F32.A Depression, unspecified; Z91.51 Personal history of suicidal behavior; Z87.19 Personal history of other diseases of the digestive system; Z98.890 Other specified postprocedural states; X83.8XXA Intentional self-harm by other specified means, initial encounter; Y93.9 Activity, unspecified; Y92.89 Other specified places as the place of occurrence of the external cause; Y99.8 Other external cause status
CPT/HCPCS: 73110; 73130; 81001; 81025

== ENCOUNTER 2024-11-12 17:21 | Emergency (ER) | payer OTHER, MEDICAID ==
[~2024-11-12] VITALS: Ht 157.5 cm; Wt 59.9 kg
--- NOTE | 2024-11-12 20:09 | DVH ---
EXAM: XY R FOREARM XRAY REASON FOR EXAM: Distal forearm trauma TECHNIQUE: AP and lateral views of the right forearm are submitted for review. COMPARISON: XY R WRIST 3+ VIEW XRAY on DOS: 10/18/24, XY R HAND 3 VIEW XRAY on DOS: 10/18/24, XY R WRIS T 3+ VIEW XRAY on DOS: 05/07/24 FINDINGS: There is chronic fracture of the ulnar styloid. No new fracture is identified. The soft tis sues are within normal limits. IMPRESSION: No acute fracture is identified. Chronic fracture of the ulnar styloid.
--- NOTE | 2024-11-12 20:20 | ED.PDOC ---
History of Present Illness HPI Comments 29-year-old female presents with a chief complaint of contusion to right forearm. Patient is coming from a [facility] and has a history of psychiatric issues. Patient mentions that she became upset and slammed her right forearm on the counter. Patient now has a contusion/hematoma to the right distal forearm. Per caregiver, psychiatric evaluation was performed at the facility and patient was cleared to come to the hospital. Chief Complaint: Upper Extremity Time Seen by MD: 20:17 Primary Care Provider: UNKNOWN Reviewed Notes: Medications, Allergies Allergies: Coded Allergies: NO KNOWN ALLERGIES (Unverified , 05/13/22) Home Meds Active Scripts Cephalexin ( Keflex 500) 500 Mg Cap, 1 CAP PO BID for 7 Days, #14 CAP 0 Refills Prov:ASMITA AGRAWAL 05/13/22 Information Source: Patient Mode of Arrival: Ambulatory Severity: Moderate Timing: Hours Duration: Since onset, Hours Prehospital treatment: None Past Medical History PAST MEDICAL HISTORY: Depression Past Medical History (Other): History of psychiatric issues Surgical History: PR INTERN History: No Pertinent PR INTERN History Family History Family History: Reviewed,noncontributory to illness Social History Smoker: Non-Smoker Alcohol: Denies ETOH Use Drugs: Denies Drug Use Lives In: Assisted Care Constitutional: denies: chills, diaphoresis, fatigue, fever, malaise, sweats, weakness, others EENTM: denies: blurred vision, double vision, ear bleeding, ear discharge, ear drainage, ear pain, ear ringing, eye pain, eye redness, hearing loss, mouth pain, mouth swelling, nasal discharge, nose bleeding, nose congestion, nose pain, photophobia, tearing, throat pain, throat swelling, voice changes, others Respiratory: denies: cough, hemoptysis, orthopnea, SOB at rest, shortness of breath, SOB with excertion, stridor, wheezing, others Cardiovascular: denies: chest pain, dizzy spells, diaphoresis, Dyspnea on exertion, edema, irregular heart beat, left arm pain, lightheadedness, palpitations, PND, syncope, others Gastrointestinal: denies: abdomen distended, abdominal pain, blood streaked bowels, constipated, diarrhea, dysphagia, difficulty swallowing, hematemesis, melena, nausea, poor appetite, poor fluid intake, rectal bleeding, rectal pain, vomiting, others Genitourinary: denies: abnormal vagina bleeding, burning, dyspareunia, dysuria, flank pain, frequency, hematuria, incontinence, pain, , vagina discharge, urgency, others Neurological: denies: dizziness, fainting, headache, left sided numbness, left sided weakness, numbness, paresthesia, pre-existing deficit, right sided numbness, right sided weakness, seizure, speech problems, tingling, tremors, weakness, others Musculoskeletal: reports: others (Right wrist pain); denies: back pain, gout, joint pain, joint swelling, muscle pain, muscle stiffness, neck pain Integumetry: reports: bruises; denies: change in color, change in hair/nails, d ryness, laceration, lesions, lumps, rash, wounds, others Allergic/Immunocompromised: denies: Difficulty Healing, Frequent Infections, Hives, Itching, others Hematologic/Lymphatic: denies: anemia, blood clots, easy bleeding, easy bruising, swollen glands, others Endocrine: denies: excessive hunger, excessive sweating, excessive thirst, excessive urination, flushing, intolerance to cold, intolerance to heat, unexplained weight gain, unexplained weight loss, others Psychiatric: denies: anxiety, bipolar disorder, depression, hopeless, panic disorder, schizophrenia, sleepless, suicidal, others All Other Systems: Reviewed and Negative Physical Exam General Appearance: Mild Distress (Mild distress due to wrist pain concerns), Normal HEENT: Normal ENT Inspection, Pharynx Normal, TMs Normal Neck: Full Range of Motion, Non-Tender, Normal, Normal Inspection Respiratory: Chest Non-Tender, Lungs Clear, No Accessory Muscle Use, No Respiratory Distress, Normal Breath Sounds Cardiovascular: No Edema, No JVD, No Murmur, No Gallop, Normal Peripheral Pulses, Regular Rate/Rhythm Breast Exam: Deferred Gastrointestinal: No Pulsatile Mass, Normal Bowel Sounds, Soft Genitalia: Deferred Pelvic: Deferred Rectal: Deferred Extremities: Other (Medial and distal aspect of right forearm reveals edema with a mild developing ecchymosis noted. No erythema. No crepitus appreciated. Significant reduced range of motion. Distal neurovascularly intact.) Musculoskeletal : Apperance: Normal Neurologic: Alert, No Motor Deficits, No Sensory Deficits Cerebellar Function: NOT DONE Reflexes: NOT DONE Skin: Dry, Normal Color, Warm Lymphatic: No Adenopathy Was a procedure done? Was a procedure done?: No Differential Dx Considerations may include: Wrist fracture, wrist contusion X-Ray, Labs, Meds, VS Vital Signs Date Time Temp Pulse Resp B/P (MAP) Pulse Ox O2 Delivery O2 Flow Rate FiO2 11/12/24 17:22 97.4 82 18 113/62 97 97.4 Current Medications Medications (Trade) Dose Ordered Sig/Dixie Route Start Time Stop Time Status Last Admin Ketorolac Tromethamine (Toradol Injection) 30 mg ONCE ONCE IM 11/12/24 19:15 11/12/24 19:16 DC 11/12/24 20:24 X-Ray, Labs, Meds, VS Comment Studies performed the ED were evaluated by me personally. Imaging study was all for any acute fractures. Patient apparently has a chronic styloid fracture. Patient was advised of findings and additionally, advised to utilize pain medication as needed as well as ice therapy. Time of 1ST Reevaluation: 20:29 Reevaluation 1ST: Improved Consultation: PCP Patient Education/Counseling: Diagnosis, Treatment, Need For Follow Up Family Education/Counseling: Diagnosis, Treatment, Need For Follow Up SEPSIS Sepsis Screen Date sepsis recognized/suspect: Nov 12, 2024 Time Sepsis recognized/suspect: 1727 Recent Procedure: No On Antibiotic Therapy: No Respiratory Rate >20: No Heart Rate >90: No Temp<36 C (96.8 F) or >38.3 C: No SBP <90 or MAP <65 mmHG: No New Acute Mental Status Change: No Is the patient on CPAP, BIPAP,: No Physician Orders R Forearm Xray (11/12/24 19:13) Vital Signs Date Time Temp Pulse Resp B/P (MAP) Pulse Ox O2 Delivery O2 Flow Rate FiO2 11/12/24 17:22 97.4 82 18 113/62 97 97.4 Medications Medications Dose Ordered Sig/Dixie Route Start Time Stop Time Status Last Admin Dose Admin Ketorolac Tromethamine 30 mg ONCE ONCE IM 11/12/24 19:15 11/12/24 19:16 DC 11/12/24 20:24 Departure 1 Departure Time of Disposition: 20:29 Impression: Primary Impression: Forearm contusion Disposition: HOME / SELF CARE / HOMELESS Condition: Stable Additional Instructions: Advised patient utilize pain medication as needed for symptomatic relief as well as ice therapy. e-Prescriptions Ibuprofen (Ibuprofen) 600 Mg Tab 1 TAB PO Q6HP PRN, #20 TAB Prov: POP CERVANTES PAC 11/12/24 Discharged With: Self, Rate Analyst Critical Care Note Critical Care Time?: No Stability Stability form required: No Heart Score Heart Score: Heart Score Response (Comments) Value History N/A 0 EKG N/A 0 Age N/A 0 Risk Factors N/A 0 Troponin N/A 0 Total 0 I personally scribed for POP CERVANTES PAC ([email or web address]) on 11/12/24 at 20:20. Electronically submitted by Hussein Mcallister ([email or web address]). POP CERVANTES PAC Nov 12, 2024 20:20
[2024-11-12] MEDS: KETOROLAC TROMETH 60MG/2ML VIAL IM ONE (20:24)
[2024-11-12] MEDS ORDERED: IBUP-1454 PO (20:35)
[2024-11-12 22:45] VITALS: BP 104/55; PULSE 66; RESP 16; TEMP 98.1; O2SAT 96
== END 2024-11-12 22:35 | disposition home or self-care (01) ==
LOC: ER 17:24
DX: S50.11XA Contusion of right forearm, initial encounter (principal); F32.A Depression, unspecified; Z98.890 Other specified postprocedural states; Z79.899 Other long term (current) drug therapy; W22.09XA Striking against other stationary object, initial encounter; Y93.89 Activity, other specified; Y92.89 Other specified places as the place of occurrence of the external cause; Y99.8 Other external cause status
CPT/HCPCS: 73090; 96372; 99283; J1885

== ENCOUNTER 2024-12-18 23:31 | Emergency (ER) | payer OTHER, MEDICAID ==
[~2024-12-18] VITALS: Ht 157.5 cm; Wt 60.1 kg
[~2024-12-18 23:31] MED LIST changes: +IBUP-1454 PO
[2024-12-18 23:36] VITALS: BP 114/58; PULSE 72; RESP 18; TEMP 98; O2SAT 95
--- NOTE | 2024-12-19 01:07 | ED.PDOC ---
Eye-HPI HPI Comments Patient is a pleasant 29-year-old female who arrives the ED today for evaluation of left ear pain status post sticking a metal object inner ear proximally 1 hour prior to arrival. Patient was trying to extricate ear wax from her ear when she utilized a metal tool and fears she may have posterior earlobe. No blood loss. No reduction in hearing. Chief Complaint: Earache Time Seen by MD: 00:42 Primary Care Provider: UNKNOWN Reviewed Notes: Nurses Notes Allergies: Coded Allergies: NO KNOWN ALLERGIES (Unverified , 05/13/22) Home Meds Active Scripts Ibuprofen (Ibuprofen) 600 Mg Tab, 1 TAB PO Q6HP PRN, #20 TAB Prov:POP CERVANTES PAC 11/12/24 Cephalexin ( Keflex 500) 500 Mg Cap, 1 CAP PO BID for 7 Days, #14 CAP 0 Refills Prov:ASMITA AGRAWAL 05/13/22 Information Source: Patient Mode of Arrival: Ambulatory Timing: Hours Duration: Since onset Prehospital treatment: None Quality: Pain Eye Location: Left ENT Ear Exam: Tender Onset: Trauma Past Medical History PAST MEDICAL HISTORY: Depression 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 Pertinent WATER METER READER History Family History Family History: Reviewed,noncontributory to illness Social History Smoker: Non-Smoker Alcohol: Denies ETOH Use Drugs: Denies Drug Use Lives In: Assisted Care Constitutional: denies: chills, diaphoresis, fatigue, fever, malaise, sweats, weakness, others EENTM: reports: ear pain; denies: blurred vision, double vision, ear bleeding, ear discharge, ear drainage, ear ringing, eye pain, eye redness, hearing loss, mouth pain, mouth swelling, nasal discharge, nose bleeding, nose congestion, nose pain, photophobia, tearing, throat pain, throat swelling, voice changes, others Respiratory: denies: cough, hemoptysis, orthopnea, SOB at rest, shortness of breath, SOB with excertion, stridor, wheezing, others Cardiovascular: denies: chest pain, dizzy spells, diaphoresis, Dyspnea on exertion, edema, irregular heart beat, left arm pain, lightheadedness, palpitations, PND, syncope, others Gastrointestinal: denies: abdomen distended, abdominal pain, blood streaked bowels, constipated, diarrhea, dysphagia, difficulty swallowing, hematemesis, melena, nausea, poor appetite, poor fluid intake, rectal bleeding, rectal pain, vomiting, others Genitourinary: denies: abnormal vagina bleeding, burning, dyspareunia, dysuria, flank pain, frequency, hematuria, incontinence, pain, , vagina discharge, urgency, others Neurological: denies: dizziness, fainting, headache, left sided numbness, left sided weakness, numbness, paresthesia, pre-existing deficit, right sided numbness, right sided weakness, seizure, speech problems, tingling, tremors, weakness, others Musculoskeletal: denies: back pain, gout, joint pain, joint swelling, muscle pain, muscle stiffness, neck pain, others Integumetry: denies: bruises, change in color, change in hair/nails, dryness, laceration, lesions, lumps, rash, wounds, others Allergic/Immunocompromised: denies: Difficulty Healing, Frequent Infections, Hives, Itching, others Hematologic/Lymphatic: denies: anemia, blood clots, easy bleeding, easy bruising, swollen glands, others Endocrine: denies: excessive hunger, excessive sweating, excessive thirst, excessive urination, flushing, intolerance to cold, intolerance to heat, unexplained weight gain, unexplained weight loss, others Psychiatric: denies: anxiety, bipolar disorder, depression, hopeless, panic disorder, schizophrenia, sleepless, suicidal, others Physical Exam General Appearance: Moderate Distress (Distress due to left ear pain concerns .), Normal HEENT: Other (Left ear canal reveals some mild remnant erythema noted at a scratch contusion to the inferior aspect. TM is not perforated. No blood noted.) Neck: Full Range of Motion, Non-Tender, Normal, Normal Inspection Respiratory: Chest Non-Tender, Lungs Clear, No Accessory Muscle Use, No Respiratory Distress, Normal Breath Sounds Cardiovascular: No Edema, No JVD, No Murmur, No Gallop, Normal Peripheral Pulses, Regular Rate/Rhythm Breast Exam: Deferred Gastrointestinal: No Organomegaly, Non Tender, No Pulsatile Mass, Normal Bowel Sounds, Soft Genitalia: Deferred Pelvic: Deferred Rectal: Deferred Extremities: No calf tenderness, Normal capillary refill, Normal inspection, Normal range of motion, Non-tender, No pedal edema Neurologic: Alert, No Motor Deficits, Normal Affect, Normal Mood, No Sensory Deficits Cerebellar Function: Normal Reflexes: Normal Skin: Dry, Normal Color, Warm Lymphatic: No Adenopathy Was a procedure done? Was a procedure done?: No EENT DIFF Eye: N/A Ear: Other (Perforated membrane, ear trauma, cerumen impaction) X-Ray, Labs, Meds, VS Vital Signs Date Time Temp Pulse Resp B/P (MAP) Pulse Ox O2 Delivery O2 Flow Rate FiO2 12/18/24 23:36 98.0 72 18 114/58 95 98.0 X-Ray, Labs, Meds, VS Comment Advised patient that she did not perforate the tympanic membrane. Patient is given some pain medication and advised to never utilize metal objects in her ear. Advised Debrox kits that can be purchased at drug stores for cerumen removal. Time of 1ST Reevaluation: 01:05 Reevaluation 1ST: Improved Consultation: PCP Patient Education/Counseling: Diagnosis, Treatment Family Education/Counseling: Diagnosis, Treatment SEPSIS Sepsis Screen Date sepsis recognized/suspect: Dec 18, 2024 Time Sepsis recognized/suspect: 2335 Recent Procedure: No On Antibiotic Therapy: No Respiratory Rate >20: No Heart Rate >90: No Temp<36 C (96.8 F) or >38.3 C: No SBP <90 or MAP <65 mmHG: No New Acute Mental Status Change: No Is the patient on CPAP, BIPAP,: No Vital Signs Date Time Temp Pulse Resp B/P (MAP) Pulse Ox O2 Delivery O2 Flow Rate FiO2 12/18/24 23:36 98.0 72 18 114/58 95 98.0 Departure 1 Departure Time of Disposition: 01:06 Impression: Primary Impression: Ear abrasion Disposition: 01 HOME / SELF CARE / HOMELESS Condition: Stable Additional Instructions: Advised Tylenol and or Motrin as needed for pain relief. Patient should utilize Debrox cleaning kits in her available at drug stores for cerumen removal. Discharged With: Self, Friend Critical Care Note Critical Care Time?: No Stability Stability form required: No Heart Score Heart Score: Heart Score Response (Comments) Value History N/A 0 EKG N/A 0 Age N/A 0 Risk Factors N/A 0 Troponin N/A 0 Total 0 POP CERVANTES PAC Dec 19, 2024 01:07
[2024-12-19] MEDS: HYDROcodone-ACET 5/325MG TAB PO ONE (01:25)
== END 2024-12-19 01:28 | disposition home or self-care (01) ==
LOC: ER 23:31
DX: S00.419A Abrasion of unspecified ear, initial encounter (principal); X58.XXXA Exposure to other specified factors, initial encounter; Y93.89 Activity, other specified; Y92.89 Other specified places as the place of occurrence of the external cause; Y99.8 Other external cause status